=== PATIENT | male | born 1945 | race Caucasian/White ===

== ENCOUNTER 2017-04-09 19:19 | Emergency (ER) | payer OTHER ==
[~2017-04-09 19:19] MED LIST: CEPHALEXIN500 MG PO; DOXAZOSIN; DOXAZOSIN MESYLATE PO; FENOFIBRATE145 M1 PO; FLO4 PO; GLIMEPIRIDE2 M1 PO; LAC PO; LEVOFLOXACIN500 M1 PO; LISINOPRIL AND1 TA2 PO; METFORMIN1000 M1 PO; NORCO1 TA2 PO; PROS5 PO; SIMVASTATIN20 M1 PO; TRENTAL400 MG PO
[2017-04-10 00:24] VITALS: BP 156/95
== END 2017-04-10 00:24 | disposition home or self-care (01) ==
LOC: ED 19:19
DX: R51 Headache (principal); I10 Essential (primary) hypertension; E11.9 Type 2 diabetes mellitus without complications; Z79.84 Long term (current) use of oral hypoglycemic drugs; Z79.899 Other long term (current) drug therapy
CPT/HCPCS: J0780; J1200; J7030

== ENCOUNTER 2019-01-11 08:30 | Emergency (ER) | payer OTHER ==
[~2019-01-11] VITALS: Ht 170.2 cm; Wt 73.5 kg
[2019-01-11 08:32] VITALS: Ht 170.2 cm; Wt 73.5 kg
[2019-01-11 09:18] VITALS: BP 125/63
== END 2019-01-11 09:18 | disposition home or self-care (01) ==
LOC: ED 08:30
DX: N35.911 Unspecified urethral stricture, male, meatal (principal); I10 Essential (primary) hypertension; E11.9 Type 2 diabetes mellitus without complications; E78.00 Pure hypercholesterolemia, unspecified